=== PATIENT | female | born 1955 | race Caucasian/White ===

== ENCOUNTER 2019-05-16 05:59 | Inpatient (IN) ==
--- NOTE | 2019-04-24 13:30 | PAT Medication Instructions ---
Medication Instructions Date of Service April 24, 2019 Home Medications amlodipine 5 mg PO QAM atenolol 25 mg PO BID atorvastatin 10 mg PO Q2D cholecalciferol (vitamin D3) [Vitamin D3] 2,000 unit PO BID fluoxetine 40 mg PO QAM irbesartan 300 mg PO QAM metformin 1,000 mg PO BID omeprazole 20 mg PO QAM Continue as directed atorvastatin 10 mg PO Q2D DO NOT take the morning of surgery cholecalciferol (vitamin D3) [Vitamin D3] 2,000 unit PO BID irbesartan 300 mg PO QAM metformin 1,000 mg PO BID Take morning of surgery With a small sip of water, OTHERWISE NOTHING TO EAT OR DRINK AFTER MIDNIGHT: amlodipine 5 mg PO QAM atenolol 25 mg PO BID fluoxetine 40 mg PO QAM omeprazole 20 mg PO QAM Take evening before surgery atenolol 25 mg PO BID cholecalciferol (vitamin D3) [Vitamin D3] 2,000 unit PO BID metformin 1,000 mg PO BID Other Notes If you have any questions please call us at [phone] or [phone] or [phone] or [phone]
--- NOTE | 2019-04-25 08:56 | Anesthesiology Consultation ---
Date of Service April 25, 2019 Assessment & Plan (1) Encounter for pre-operative examination: Chart Review Chart Review: Acceptable Risk for Surgery (pending preop testing (labs, EKG, CXR)) and Patient seen in Pre Admission Testing Teaching & Discussion Pre-Anesthesia Teaching/Discussion Notes: Instructed NPO after midnight before surgery,except medications with 15 cc of water. Medication instructions provided according to the PAT guidelines. History Surgery Operation Date: 05/16/19 07:45 Proposed Procedures p L2-S1 Decompression and Fusion, Spinal Cord Monitoring - Quincy Kruger DO Height/Weight Height: 5 ft 5 in Weight: 90 kg Allergies Allergy/AdvReac Type Severity Reaction Status Date / Time No Known Allergies Allergy Verified 04/18/19 12:10 Medications Home Medications Medication Instructions Recorded Confirmed Last Taken amlodipine 5 mg PO QAM 04/18/19 04/18/19 04/18/19 atenolol 25 mg PO BID 04/18/19 04/18/19 04/18/19 atorvastatin 10 mg PO Q2D 04/18/19 04/18/19 Unknown cholecalciferol (vitamin D3) 2,000 unit PO BID 04/18/19 04/18/19 Unknown [Vitamin D3] fluoxetine 40 mg PO QAM 04/18/19 04/18/19 04/18/19 irbesartan 300 mg PO QAM 04/18/19 04/18/19 04/18/19 metformin 1,000 mg PO BID 04/18/19 04/18/19 04/18/19 omeprazole 20 mg PO QAM 04/18/19 04/18/19 04/18/19 Past Medical History Medical History Acid reflux controlled Anxiety and depression Diabetes Hiatal hernia Hypertension Obesity Spinal stenosis Exercise / Class Metabolic Activity II 4-5 Yardwork/Stairs/Walk up hill Past Family History Family History Son Family history of diabetes mellitus (DM) Past Surgical History Surgical History History of appendectomy History of back surgery "NO HARDWARE" History of colonoscopy History of hysterectomy History of tubal ligation Past Anesthesia History No Family Hx of Anesthesia Complications and Other *Patient reports she had hypotension during colonoscopy resolved with medical therapy. No issues with other surgeries/procedures.* History of PONV No Hx of PONV and No Hx of Motion Sickness Social History Smoking Status: Current every day smoker tobacco type: cigarettes Smoking cigarettes per day: 1 PPD x 30 years Do You Dip or Chew Tobacco: No Hx Alcohol Use: Yes Alcohol type: beer alcohol intake frequency: a few times a month Hx Substance Use: No substance use type: does not use Review of Systems Reflux controlled. Patient denies chest pain, shortness of breath, dyspnea on exertion, cough, wheezing, palpitations. Physical Exam Vital Signs VITALS BP 130/77 P 65 TEMP 98.1 SP02 98%RA RESP 16 PHYSICAL Full neck and c-spine range of motion. Full TMJ range of motion. TMD 3.5 finger breaths Mallampati Score 3 Dentition: missing sides/molars, 4 crowns including upper front Lungs: clear throughout to auscultation Cardiac: regular rate and rhythm, no murmurs noted Spine: normal Carotid arteries: negative bruit Extremities: no edema
--- NOTE | 2019-04-25 09:30 | XRay Report ---
XR chest Pre-admission PA/Lat CLINICAL HISTORY: Preoperative evaluation. COMPARISON STUDY: No previous studies for comparison. FINDINGS: Lung volumes are normal. Lungs are clear. There is no pneumothorax or pleural effusion. Car diac size is normal. Mediastinal contours are normal. There is no evidence for pulmonary edema. IMPRESSION: No acute cardiopulmonary findings. Electronically signed by: Kamron Kerns M.D. 04/25/2019 9:28 AM
[2019-04-25 10:32] LABS: Basophils # (auto) 0.08 K/uL (0-0.2); Basophils % (auto) 0.8 %; Eosinophils # (auto) 0.18 K/uL (0-0.5); Eosinophils % (auto) 1.7 %; Hemoglobin 15.5 g/dL (12.0-16.0); Immature Granulocytes # (auto) 0.03 K/uL (0.00-0.02); Immature Granulocytes % (auto) 0.3 %; Lymphocytes # (auto) 1.65 K/uL (1.2-3.4); Lymphocytes % (auto) 15.9 %; Mean Corpuscular Hemoglobin 31.8 pg (25-34); Mean Corpuscular Volume 88.1 fL (80-100); Mean Platelet Volume 10.6 fL (7.4-10.4); Monocytes % (auto) 7.7 %; Neutrophils # (auto) 7.67 K/uL (1.4-6.5); Neutrophils % (auto) 73.6 %; Platelet Count 329 K/uL (130-400); RDW Coefficient of Variation 12.9 % (11.5-14.5); RDW Standard Deviation 41.4 fL (36.4-46.3); Red Blood Count 4.88 M/uL (4.2-5.4); White Blood Count 10.41 K/uL (4.8-10.8)
[2019-04-25 10:36] LABS: Appearance Urine Clear (Clear); Bilirubin Urine Negative (Negative); Blood Urine Negative (Negative); Color Urine Yellow; Glucose Urine UA Negative (Negative); Ketones Urine Negative (Negative); Leukocyte Esterase Urine Negative (Negative); Nitrite Urine Negative (Negative); Protein Urine Negative (Negative); Specific Gravity Urine 1.011 (1.000-1.030); Urobilinogen Urine Negative (Negative); pH Urine 6.5 (4.5-7.5)
[2019-04-25 10:41] LABS: Partial Thromboplastin Ratio 0.9; Partial Thromboplastin Time 24.5 Seconds (21.0-31.0); Prothrombin Time 10.2 Seconds (9.0-12.0)
[2019-04-25 10:42] LABS: BUN Creatinine Ratio 15.2 (10-20); Calcium 9.3 mg/dl (8.5-10.1); Creatinine Clr Calc Pharmacy 69.2 ml/min; Est GFR (African American) 77.3; Est GFR (Non-African American) 66.7; Potassium 4.4 mmol/L (3.5-5.1)
[2019-05-16] MEDS ORDERED: CeleBREX 200 MG CAP PO SCH (06:00)
[2019-05-16] MEDS ORDERED: LR 15ML/HR IV SCH (06:00)
[2019-05-16] MEDS ORDERED: GABAPENTIN 300 MG CAP PO SCH (06:00)
[2019-05-16] MEDS ORDERED: CEFAZOLIN 2000MG 2,000 MG/15 ML SYR IV SCH (06:00)
[2019-05-16] MEDS ORDERED: ACETAMINOPHEN 500 MG TAB PO SCH (06:00)
[2019-05-16] MEDS ORDERED: LIDOCAINE HCL 2% 2 ML VIAL/AMP(20MG/ML) INFIL ONE (06:38)
[2019-05-16] MEDS ORDERED: ONDANSETRON INJ 2 MG/ML 2 ML VIAL ONE (06:38)
[2019-05-16] MEDS ORDERED: DEXAMETHASONE SOD INJ 4 MG/ML VIAL ONE ×2 (06:38→12:23)
[2019-05-16] MEDS ORDERED: PROPOFOL IV EMULSION 10 MG/ML 20 ML VIAL IV ONE (06:38)
[2019-05-16] MEDS ORDERED: MIDAZOLAM HCL 1 MG/ML 2ML VIAL ONE (06:38)
[2019-05-16] MEDS ORDERED: ROCURONIUM BROMIDE 10 MG/ML 5 ML VIAL ONE ×3 (06:38→09:28)
[2019-05-16] MEDS ORDERED: fentaNYL citrate 100 MCG/2 ML VIAL ONE ×2 (06:38)
[2019-05-16] MEDS ORDERED: BACITRACIN INJ 50,000 UNIT VIAL ONE (07:04)
[2019-05-16] MEDS ORDERED: BUPIVACAINE/EPINEPHRINE 0.5% MPF 1:200,000 30 ML VIAL ONE (07:04)
[2019-05-16] MEDS ORDERED: ACETAMINOPHEN 1000 MG/100 ML IV IV ONE (07:24)
--- NOTE | 2019-05-16 07:26 | History & Physical Bridge Note ---
Date of Service May 16, 2019 History & Physical Bridge Note I have examined the patient, reviewed the History & Physical and in the interval since the performance of the History & Physical I have noted the following changes of clinical significance: no changes noted
--- NOTE | 2019-05-16 07:28 | History & Physical Report ---
Date of Service May 16, 2019 Assessment & Plan (1) Spinal stenosis, lumbar region with neurogenic claudication: Decompression and fusion L4-5 possible L3-4 L2-3. Present on Admission?: Yes History of Present Illness Chief Complaint: Back and leg pain Primary Care Provider: NO PCP Female well-known to me that presents with chronic persistent back and leg pain. After failing extensive course of nonoperative care she is here for surgical intervention. Allergies Allergy/AdvReac Type Severity Reaction Status Date / Time No Known Allergies Allergy Verified 05/16/19 06:16 Home Medications Home Medications Medication Instructions Recorded Confirmed Type amlodipine 5 mg PO QAM 04/18/19 05/16/19 History atenolol 25 mg PO BID 04/18/19 05/16/19 History atorvastatin 10 mg PO Q2D 04/18/19 05/16/19 History cholecalciferol (vitamin D3) 2,000 unit PO BID 04/18/19 05/16/19 History [Vitamin D3] fluoxetine 40 mg PO QAM 04/18/19 05/16/19 History irbesartan 300 mg PO QAM 04/18/19 05/16/19 History metformin 1,000 mg PO BID 04/18/19 05/16/19 History omeprazole 20 mg PO QAM 04/18/19 05/16/19 History Past Med/Surg History Family History Son Family history of diabetes mellitus (DM) Social History Preferred Language: Latvian Communication Ability: Effective Home Restoration Service Supervisor Required: No Beliefs That Will Affect Care: None Current Living Situation: Alone Other Information That Helps Us Care for You: No Feels Safe at Home: Yes Smoking Status: Current every day smoker Tobacco Type: cigarettes ; Cigarettes Per Day: 1 PPD x 30 years ; Do You Dip or Chew Tobacco: No ; Tobacco Cessation Education Requested by Patient: No Hx Alcohol Use: Yes Alcohol type: beer Hx Substance Use: No Physical Exam Physical Exam: Patient is alert and oriented neurologically intact. Results & Data Vital Signs (Past 12 Hours) Vital Signs Temp Pulse Resp BP Pulse Ox 05/16/19 06:19 37 C 78 20 169/93 H 98
[2019-05-16] MEDS ORDERED: MoRPHine SULFATE 10 MG/ML CARP/VIAL IV PRN (07:36)
[2019-05-16] MEDS ORDERED: ePHEDrine sulfate 50 MG/ML AMP IV PRN (07:36)
[2019-05-16] MEDS ORDERED: ONDANSETRON INJ 2 MG/ML 2 ML VIAL IV PRN ×2 (07:36→10:02)
[2019-05-16] MEDS ORDERED: ATROPINE SULFATE 0.1 MG/ML 10ML SYR IV PRN (07:36)
[2019-05-16] MEDS ORDERED: KETAMINE HCL INJ 50 MG/ML 10 ML VIAL ONE (07:55)
[2019-05-16] MEDS ORDERED: ePHEDrine sulfate 50 MG/ML SYR ONE (08:17)
[2019-05-16] MEDS ORDERED: HYDROmorphone INJ 2 MG/ML SYR/VIAL ONE (08:24)
[2019-05-16] MEDS ORDERED: FLOSEAL HEMOSTATIC MATRIX 10ML TOP ONE (08:38)
[2019-05-16] MEDS ORDERED: GLYCOPYRROLATE 0.2 MG/ML VIAL ONE (09:28)
[2019-05-16] MEDS ORDERED: NEOSTIGMINE METHYLSULFATE 1 MG/ML 10ML VIAL ONE (09:28)
[2019-05-16] MEDS ORDERED: ONDANSETRON 4 MG TAB PO PRN (10:02)
[2019-05-16] MEDS ORDERED: ALUMINUM/MAGNESIUM SUSP 30 ML UDC PO PRN (10:02)
[2019-05-16] MEDS ORDERED: LORazepam 0.5 MG TAB PO PRN (10:02)
[2019-05-16] MEDS ORDERED: PROMETHAZINE HCL 12.5 MG in SODIUM CHLORIDE 0.9% 50 ML IV PRN (10:02)
[2019-05-16] MEDS ORDERED: HYDROmorphone INJ 0.5 MG/0.5 ML SYR IV PRN (10:02)
[2019-05-16] MEDS ORDERED: MAGNESIUM HYDROXIDE SUSP 30 ML UDC PO PRN (10:02)
[2019-05-16] MEDS ORDERED: METOCLOPRAMIDE HCL INJ 5 MG/ML 2 ML VIAL IV PRN (10:02)
[2019-05-16] MEDS ORDERED: NALOXONE HCL 0.4 MG/1 ML VIAL/CARP IV PRN (10:02)
[2019-05-16] MEDS ORDERED: SOD PHOSPHATE/SOD BIPHOSPHATE ENEMA 132 ML BTL PR PRN (10:02)
[2019-05-16] MEDS ORDERED: DO NOT ADMINISTER FLU VACCINE PRN (10:02)
[2019-05-16] MEDS ORDERED: ACETAMINOPHEN 500 MG TAB PO PRN (10:02)
[2019-05-16] MEDS ORDERED: ACETAMINOPHEN 1,000 MG/100 ML VIAL IV PRN (10:02)
[2019-05-16] MEDS ORDERED: TRAMADOL HCL 50 MG TABLET PO PRN (10:02)
[2019-05-16] MEDS ORDERED: BISACODYL 10 MG SUPP PR PRN (10:02)
[2019-05-16] MEDS ORDERED: FAMOTIDINE 20 MG TAB PO PRN (10:02)
[2019-05-16] MEDS ORDERED: DO NOT ADMINISTER PNEUMOCOCCAL VACCINE PRN (10:02)
[2019-05-16] MEDS ORDERED: LORazepam 0.5 MG/1 ML VIAL IV PRN (10:02)
--- NOTE | 2019-05-16 10:02 | Operative Report ---
Post Operative Report Pre & Post Diagnosis Operation Date: 05/16/19 07:45 Pre-Op Diagnosis: LUMBAR SPINAL STENOSIS, NEUROGENIC CLAUDICATION Post-Op Diagnosis: LUMBAR SPINAL STENOSIS, NEUROGENIC CLAUDICATION Procedure Operation Date: 05/16/19 07:45 Actual Procedures #1 revision decompression bilateral medial facetectomies foraminotomies L2-3 L3- 4 L4-5. #2 posterior spinal fusion L2-3 L3-4 L4-5 per #3 placement posterior segmental instrumentation L2-L5. #4 interbody fusion L4-5 per #5 placed a peek cage 11 x 26 mm at L4-5 per #6 placement of local autograft in the posterior lateral gutters per #7 placement infuse collagen sponge, mass graft in the posterior lateral gutters and ostial amp and interbody space. Surgeon Quincy Kruger, DO Distribution Accounting Clerk Alton Olsen Estimated Blood Loss 200 Findings See Below Patient is 5 foot 5 inches tall weighing over 89 kg with BMI in excess of 32. The patient's body habitus did create significant technical difficulty adding at least 25% increase in operative time requiring her deepest retractors and longest instruments to perform the procedure. Specimens None Indications This is a 63-year-old female presents with above-mentioned diagnosis after failing extensive course of nonoperative care like to undergo the above- mentioned procedure. Description of Procedure Patient was met with identified and informed consent obtained. Patient was then taken to the operative suite underwent intubation placed in the prone position on the José table on top. All bony prominences well-padded eyes inspected to ensure no external pressure placed upon the peer at this point the dissection with the assistance of Bovie cautery was performed down to and exposing the remaining lamina processes of L2-L3-L4 5 bilaterally. From a caudal to cephalad fashion a revision complete laminectomy of L4 L3 and L2 was performed including bilateral medial facetectomies to address severe stenosis. I did elect to extend the fusion decompression up to L2-3 L3-4 noting marked facet hypertrophy and significant stenosis. Pedicle screw was then placed in L2 L3-L4-L5 bilaterally with assistance of fluoroscopy the process renu placed. By way of a transforaminal portion right complete discectomy was performed endplates curetted to subcortical being bone and a 11 x 26 mm peek cage filled with ostium bone graft tapped in position. The rods were then locked in final position bilaterally. Transverse processes of L2-L3-L4 fiber to subcortical bleeding bone. Infuse collagen sponge mass graft and local autograft of 10 round MARLYN drain inserted. Incision was then closed with 1 Vicryl in the fascia 2-0 Vicryl subcutaneous and 4 Monocryl for final skin closure. Steri-Strip sterile dressings placed. Patient will continue to PACU stable condition. Please note Alton Olsen present throughout the entire procedure involved in patient positioning complex portions of the surgery and final skin closure. Lastly spinal cord monitoring was utilized throughout the procedure no changes noted. I attest to the content of the Intraoperative Record and any orders documented therein. Any exceptions are noted below.
--- NOTE | 2019-05-16 10:18 | Fluoroscopy Report ---
FL lumbar spine 2-3V CLINICAL HISTORY: L3-L4 DECOMPRESSION AND FUSION POSSIBLE L2-L3 COMPARISON STUDY: None FLUOROSCOPY TIME: 29 seconds NUMBER OF FLUOROSCOPIC IMAGES: 3 FINDINGS: Findings consistent with an L2-L5 laminectomy and fusion. Disc spacer is present at the L4- L5 level. Alignment appears anatomic. IMPRESSION: Anatomic alignment post L2-L5 laminectomy and fusion The above report was generated using voice recognition software. It may contain grammatical, syntax or spelling errors. Electronically signed by: Addison Maldonado M.D. 05/16/2019 10:17 AM
[2019-05-16] MEDS: fentaNYL citrate 100 MCG/2 ML VIAL IV PRN ×2 (10:35→10:40)
--- NOTE | 2019-05-16 10:54 | Anesthesiology Progress Note ---
Date of Service May 16, 2019 Anesthesia Post Procedure Vital Signs Vital Signs: Temp Pulse Resp BP Pulse Ox 05/16/19 10:50 81 16 135/62 98 05/16/19 10:40 78 16 120/63 100 05/16/19 10:30 70 16 113/68 100 05/16/19 10:23 36.4 C L 86 16 150/74 H 98 05/16/19 06:19 37 C 78 20 169/93 H 98 Pain Intensity Back: Pain Intensity: 6 Transfer of Care Handoff Completed per policy Notes Mental Status: alert / awake / arousable and participated in evaluation Patient Amnestic to Procedure: Yes Nausea / Vomiting: adequately controlled Pain: adequately controlled Airway Patency, RR, SpO2: stable & adequate BP & HR: stable & adequate Hydration State: stable & adequate Anesthetic Complications: no major complications apparent and Pt Satisfied with anesthetic care
[2019-05-16] MEDS: LACTATED RINGER'S 1,000 ML IV SCH ×2 (12:33→18:21)
[2019-05-16] MEDS: ATORVASTATIN 10 MG TAB PO SCH (13:19)
[2019-05-16] MEDS ORDERED: CARBOHYDRATES FOR HYPOGLYCEMIA PO PRN (13:51)
[2019-05-16] MEDS ORDERED: GLUCOSE 10 TABS/TUBE PO PRN (13:51)
[2019-05-16] MEDS ORDERED: GLUCAGON FOR INJ 1 MG VIAL SQ PRN (13:51)
[2019-05-16] MEDS ORDERED: DEXTROSE 50% 50 ML SYRINGE IV PRN (13:51)
[2019-05-16] MEDS ORDERED: GLUCOSE 40% GEL 15 GM TUBE PO PRN (13:51)
--- NOTE | 2019-05-16 13:57 | Hospitalist Consultation ---
Date of Consultation May 16, 2019 Assessment & Plan (1) Spinal stenosis, lumbar region with neurogenic claudication: - POD# 0 L2-L3, L3-L4, L4-L5 decompression and fusion by Dr. Kruger - activity and wound care orders as per ortho - pain control with bowel regimen - PT/OT - monitor H/H for acute blood loss anemia and transfuse blood products PRN - EBL 200 cc (2) Diabetes: -Per patient report, Hgb A1c 7.0 in October; will check with morning labs -Typically managed on metformin at home -Lantus and NovoLog per protocol while hospitalized (3) Hypertension: -BP controlled, continue amlodipine, irbesartan, and atenolol (4) HLD (hyperlipidemia): -Continue statin (5) Acid reflux: -Continue PPI (6) Anxiety and depression: -Continue fluoxetine (7) DVT prophylaxis: -Teds/SCDs as per spine orthopedics Thank you for this consultation. We will follow the patient with you during their hospital stay. You can reach a member of the [facility] Hospitalist Team 19/03 via pager @ [phone]. Patient will be followed by Dr. Pierce beginning 05/17. Supervising Physician Co-Signing Physician Notes HISTORY: Record reviewed. Patient interviewed and examined in her room around 16:00. Care coordinated with FAYE Burkett. Please refer to her documentation for patient's history. Briefly, 63 YO F with DM, hypertension, and other problems. Lumbar decompression / fusion performed today. Doing well postoperatively. No chest pain, cough, SOB, nausea, vomiting. Pain well-controlled. EXAM: General- no distress Lungs- clear to auscultation; no respiratory distress Cardiovascular- RRR; no murmur; no gallop; no JVD; no pretibial edema Abdomen- + bowel sounds, soft, nontender - Bolanos cath Extremities- no cyanosis; no calf tenderness; TEDS and SCD's applied Neuro- alert, oriented Skin- warm & dry DATA: Fingerstick blood glucose 196 @ 11:57 Other lab studies as noted. Preop chest x-ray 04/25/19 was unremarkable. EKG performed 04/25/19 reviewed and demonstrated NSR at 70 / minute, no acute changes. ASSESSMENT AND PLAN: HYPERTENSION Continue atenolol, amlodipine, irbesartan with hold parameters. DM TYPE 2 Usually fairly well-controlled with metformin. Hold metformin during hospital stay. NovoLog / Lantus per protocol. Please refer to KATHLEEN Olivarez's documentation for discussion of other issues. Thank you for this consultation. We will follow the patient with you during their hospital stay. My cell # is [phone]. You can reach a member of the [facility] Medicine Team 19/03 via pager @ [phone]. History of Present Illness Reason for Consultation: Postop medical management Requesting Physician: Dr. Kruger Attending Physician: Dr. Harrell History of Present Illness 63-year-old female who is status post decompression fusion L2-L3, L3-L4, L4-L5 today by Dr. Kruger. Postoperatively the patient is doing well. She reports her pain is well controlled. No numbness or tingling to lower extremities. She denies chest pain shortness of breath. No lightheadedness or dizziness. She denies abdominal pain or nausea. Bolanos catheter is in place draining clear yellow urine. Allergies Allergy/AdvReac Type Severity Reaction Status Date / Time No Known Allergies Allergy Verified 05/16/19 06:16 Home Medications Home Medications Medication Instructions Recorded Confirmed Type amlodipine 5 mg PO QAM 04/18/19 05/16/19 History atenolol 25 mg PO BID 04/18/19 05/16/19 History atorvastatin 10 mg PO Q2D 04/18/19 05/16/19 History cholecalciferol (vitamin D3) 2,000 unit PO BID 04/18/19 05/16/19 History [Vitamin D3] fluoxetine 40 mg PO QAM 04/18/19 05/16/19 History irbesartan 300 mg PO QAM 04/18/19 05/16/19 History metformin 1,000 mg PO BID 04/18/19 05/16/19 History omeprazole 20 mg PO QAM 04/18/19 05/16/19 History Patient History Medical History HLD (hyperlipidemia) (Chronic) Hypertension (Chronic) Diabetes (Chronic) Anxiety and depression (Chronic) Spinal stenosis (Chronic) Acid reflux (Chronic) controlled Hiatal hernia (Chronic) Obesity (Chronic) Surgical History History of appendectomy (Chronic) History of tubal ligation (Chronic) History of hysterectomy (Chronic) History of back surgery (Chronic) "NO HARDWARE" History of colonoscopy (Chronic) Family History Son Diabetes Mother COPD (chronic obstructive pulmonary disease) Diabetes Sister Diabetes Social History Preferred Language: Belarusian Communication Ability: Effective Embedded Linux Engineer Required: No Beliefs That Will Affect Care: None Current Living Situation: Alone Other Information That Helps Us Care for You: No Feels Safe at Home: Yes Smoking Status: Current every day smoker Tobacco Type: cigarettes ; Cigarettes Per Day: 1 PPD x 30 years ; Do You Dip or Chew Tobacco: No ; Tobacco Cessation Education Requested by Patient: No Hx Alcohol Use: Yes Alcohol type: beer Alcohol Intake Frequency: Weekly Hx Substance Use: No Review of Systems Review of Systems: ROS per HPI, all other systems reviewed and negative Physical Exam Constitutional: WD/WN, vitals as above Eyes: PERRL, conjunctivae normal, anicteric sclerae ENMT: external ear and nose normal, oropharynx normal Respiratory: normal respiratory effort; no respiratory distress Auscultation: + diminished lung sounds Cardiovascular: Rate/Rhythm: regular rate and regular rhythm Vessels: normal peripheral pulses Extremities: no edema Gastrointestinal (Abdomen): normal bowel sounds, soft, nontender, no hepatosplenomegaly Musculoskeletal: no cyanosis or clubbing, extremities motor strength 5/5 S/P back surgery, pedal pushes and pulls strong bilaterally Skin: no rashes, warm and dry Neurologic: PERRL, EOMI, accommodation nl, no face palsy, no dysarthria Psychiatric: A+Ox3, euthymic affect Results & Data Vital Signs (Past 12 Hours) Vital Signs Temp Pulse Pulse Resp BP Pulse Ox 05/16/19 13:38 36.4 C L 73 20 103/64 99 05/16/19 12:40 77 18 105/63 98 05/16/19 12:34 36.4 C L 75 16 103/61 98 05/16/19 12:13 76 16 109/64 97 05/16/19 11:20 74 16 116/59 L 96 05/16/19 11:10 70 16 107/58 L 97 05/16/19 11:00 36.6 C 76 16 114/56 L 99 05/16/19 10:50 81 16 135/62 98 05/16/19 10:40 78 16 120/63 100 05/16/19 10:30 70 16 113/68 100 05/16/19 10:23 36.4 C L 86 16 150/74 H 98 05/16/19 06:19 37 C 78 20 169/93 H 98
[2019-05-16] MEDS: CEFAZOLIN 2000MG 2,000 MG/15 ML SYR IV SCH ×2 (17:23→23:30)
[2019-05-16] MEDS: INSULIN ASPART 100 UNITS/ML 3 ML PEN SC SCH ×2 (18:11→21:01)
[2019-05-16] MEDS: OXYCODONE HCL IR 5 MG TAB (IMMEDIATE RELEASE) PO PRN (20:53)
[2019-05-16] MEDS: ATENOLOL 25 MG TABLET PO SCH (20:54)
[2019-05-16] MEDS: CHOLECALCIFEROL 1,000 UNITS TAB PO SCH (20:55)
[2019-05-16] MEDS: INSULIN GLARGINE SOLOSTAR 100 UNITS/ML 3 ML PEN SC SCH (20:58)
[2019-05-16] MEDS: DOCUSATE SODIUM/SENNA 50/8.6MG TAB PO SCH (21:04)
[2019-05-17] MEDS: LACTATED RINGER'S 1,000 ML IV SCH (00:52)
[2019-05-17] MEDS: OXYCODONE HCL IR 5 MG TAB (IMMEDIATE RELEASE) PO PRN ×5 (00:52→20:19)
[2019-05-17] MEDS: POLYETHYLENE (MIRALAX) 17 GM PACK PO SCH ×4 (05:23→23:34)
[2019-05-17 05:57] LABS: Basophils # (auto) 0.06 K/uL (0-0.2); Basophils % (auto) 0.5 %; Eosinophils # (auto) 0.34 K/uL (0-0.5); Eosinophils % (auto) 2.6 %; Hematocrit (blood only) 34.1 % (37-47); Hemoglobin 11.9 g/dL (12.0-16.0); Immature Granulocytes # (auto) 0.04 K/uL (0.00-0.02); Immature Granulocytes % (auto) 0.3 %; Lymphocytes # (auto) 1.66 K/uL (1.2-3.4); Lymphocytes % (auto) 12.5 %; Mean Corpuscular Hemoglobin 31.3 pg (25-34); Mean Corpuscular Hgb Conc 34.9 g/dL (32-36); Mean Corpuscular Volume 89.7 fL (80-100); Mean Platelet Volume 9.9 fL (7.4-10.4); Monocytes # (auto) 1.42 K/uL (0.11-0.59); Monocytes % (auto) 10.7 %; Neutrophils # (auto) 9.72 K/uL (1.4-6.5); Neutrophils % (auto) 73.4 %; Platelet Count 251 K/uL (130-400); RDW Coefficient of Variation 12.9 % (11.5-14.5); RDW Standard Deviation 42.2 fL (36.4-46.3); White Blood Count 13.24 K/uL (4.8-10.8)
[2019-05-17 06:32] LABS: BUN Creatinine Ratio 8.1 (10-20); Calcium 8.3 mg/dl (8.5-10.1); Creatinine Clr Calc Pharmacy 83.7 ml/min; Est GFR (African American) 97.6; Est GFR (Non-African American) 84.2
--- NOTE | 2019-05-17 07:47 | Orthopedic Progress Note ---
Date of Service May 17, 2019 Assessment & Plan (1) Spinal stenosis, lumbar region with neurogenic claudication: Patient is doing well postoperative day #1. Team with GI DVT prophylaxis as well as pain control. She will be up and ambulate with physical therapy today. Her hopes that she will be safe for home discharge on Sunday. Subjective Patient was seen bedside in room 306 postop day #1. She is status post L2-L5 decompression and fusion. She is doing better at this point. She has some soreness in her back but the leg pain seems to be better. She did have some pain that woke her up at night but primarily in the back itself. She is u tilizing her pain medication. She denies any other numbness, tingling, or paresthesias. Physical Exam Physical Exam: On exam the patient was seen standing up using her walker. Her MARLYN drain Bolanos are in place. Her abdomen soft nontender calves are supple nontender strength and sensation are both intact. Results & Data Vital Signs (Past 12 Hours) Vital Signs Temp Pulse Resp BP Pulse Ox 05/17/19 07:05 37.2 C 72 18 126/74 91 05/17/19 03:44 36.7 C 72 16 109/65 96 05/16/19 23:35 37.3 C 68 16 104/68 95 05/16/19 20:27 36.6 C 73 16 119/71 91
[2019-05-17 07:50] LABS: Estimated Average Glucose 146 mg/dl; Hemoglobin A1C 6.7 % (4.5-5.6)
[2019-05-17] MEDS: PANTOprazole 40 MG TAB PO SCH (08:30)
[2019-05-17] MEDS: AMLODIPINE BESYLATE 5 MG TAB PO SCH (08:31)
[2019-05-17] MEDS: IRBESARTAN 150 MG TAB PO SCH (08:31)
[2019-05-17] MEDS: CHOLECALCIFEROL 1,000 UNITS TAB PO SCH ×2 (08:31→20:19)
[2019-05-17] MEDS: FLUOXETINE HCL 20 MG CAP PO SCH (08:32)
[2019-05-17] MEDS: ATENOLOL 25 MG TABLET PO SCH ×2 (08:32→20:19)
[2019-05-17] MEDS: INSULIN ASPART 100 UNITS/ML 3 ML PEN SC SCH ×4 (08:34→21:11)
[2019-05-17] MEDS: INSULIN GLARGINE SOLOSTAR 100 UNITS/ML 3 ML PEN SC SCH ×2 (08:35→21:10)
--- NOTE | 2019-05-17 09:18 | Hospitalist Progress Note ---
Date of Service May 17, 2019 Assessment & Plan (1) Spinal stenosis, lumbar region with neurogenic claudication: -This is a patient with preop diagnosis of LUMBAR SPINAL STENOSIS, NEUROGENIC CLAUDICATION who had on 05/16/19 LUMBAR SPINE DECOMPRESSION AND FUSION by Dr. Kruger (Actual Procedures #1 revision decompression bilateral medial facetectomies foraminotomies L2-3 L3- 4 L4-5. #2 posterior spinal fusion L2-3 L3-4 L4-5 per #3 placement posterior segmental instrumentation L2-L5. #4 interbody fusion L4-5 per #5 placed a peek cage 11 x 26 mm at L4-5 per #6 placement of local autograft in the posterior lateral gutters per #7 placement infuse collagen sponge, mass graft in the po sterior lateral gutters and ostial amp and interbody space) - activity and wound care orders as per ortho - pain control with bowel regimen -MCKINLEY TO BE REMOVED ON 05/17/19 - PT/OT Acute blood loss anemia -04/25/19 with normal Hgb of 15.5 -Estimated Blood Loss from surgery is 200 cc on 05/16/19 -Hgb on 05/17/19 is 11.9 -monitor serosanguinous output from MARLYN drain -no need to transfuse at this time (2) Diabetes: -Per patient report, Hgb A1c 7.0 in October -HbA1c is 6.7 on this hospital stay -Typically managed on metformin at home -hold metformin for now -Lantus and NovoLog per protocol while hospitalized (3) Hypertension: -blood pressure stable -continue amlodipine, irbesartan, and atenolol (4) HLD (hyperlipidemia): -Continue home dosing of atorvastatin 10 mg every 2 days (5) Acid reflux: -Continue PPI (6) Anxiety and depression: -Continue fluoxetine (7) DVT prophylaxis: -Teds/SCDs Subjective Patient seen and examined this AM. Has not been seen by physical therapy as of yet. mckinley is still in place. patient able to sit up on her own power. back pain is tolerable. no shortness of breath. breathing on room air. no chest pain. no abdominal pain. no dizziness. no lightheadedness. no vomiting. Physical Exam Constitutional: WD/WN, vitals as above Eyes: PERRL, conjunctivae normal, anicteric sclerae EOM intact bilaterally ENMT: external ear and nose normal, oropharynx normal Neck: normal visual inspection Respiratory: normal respiratory effort, lungs clear to auscultation Cardiovascular: Rate/Rhythm: regular rate and regular rhythm Gastrointestinal (Abdomen): normal bowel sounds, soft, nontender, no hepatosplenomegaly Musculoskeletal: Head/Neck/Chest: normocephalic and head atraumatic able to sit up on her own power, MARLYN drain to the back, lower back dressing Neurologic: PERRL, EOMI, accommodation nl, no face palsy, no dysarthria Genitourinary: mckinley Results & Data Vital Signs (Past 12 Hours) Vital Signs Temp Pulse Pulse Resp BP Pulse Ox 05/17/19 08:29 88 118/67 05/17/19 07:05 37.2 C 72 18 126/74 91 05/17/19 03:44 36.7 C 72 16 109/65 96 05/16/19 23:35 37.3 C 68 16 104/68 95
[2019-05-17] MEDS: DOCUSATE SODIUM/SENNA 50/8.6MG TAB PO SCH (17:31)
[2019-05-18] MEDS: OXYCODONE HCL IR 5 MG TAB (IMMEDIATE RELEASE) PO PRN ×5 (01:28→23:37)
[2019-05-18] MEDS: POLYETHYLENE (MIRALAX) 17 GM PACK PO SCH ×2 (05:27→13:11)
[2019-05-18 07:49] LABS: Basophils # (auto) 0.02 K/uL (0-0.2); Basophils % (auto) 0.1 %; Eosinophils # (auto) 0.04 K/uL (0-0.5); Eosinophils % (auto) 0.2 %; Hematocrit (blood only) 30.9 % (37-47); Hemoglobin 10.8 g/dL (12.0-16.0); Immature Granulocytes # (auto) 0.03 K/uL (0.00-0.02); Immature Granulocytes % (auto) 0.2 %; Lymphocytes # (auto) 1.21 K/uL (1.2-3.4); Lymphocytes % (auto) 7.3 %; Mean Corpuscular Hemoglobin 31.4 pg (25-34); Mean Corpuscular Volume 89.8 fL (80-100); Mean Platelet Volume 9.2 fL (7.4-10.4); Monocytes # (auto) 1.49 K/uL (0.11-0.59); Neutrophils # (auto) 13.74 K/uL (1.4-6.5); Neutrophils % (auto) 83.2 %; Platelet Count 218 K/uL (130-400); RDW Coefficient of Variation 12.9 % (11.5-14.5); RDW Standard Deviation 41.7 fL (36.4-46.3); Red Blood Count 3.44 M/uL (4.2-5.4); White Blood Count 16.53 K/uL (4.8-10.8)
[2019-05-18 08:31] LABS: Albumin Level 2.7 gm/dl (3.4-5.0); BUN Creatinine Ratio 10.9 (10-20); Creatinine Clr Calc Pharmacy 89.7 ml/min; Est GFR (African American) 106.1; Est GFR (Non-African American) 91.6; Potassium 3.7 mmol/L (3.5-5.1)
[2019-05-18] MEDS: FLUOXETINE HCL 20 MG CAP PO SCH (08:31)
[2019-05-18] MEDS: AMLODIPINE BESYLATE 5 MG TAB PO SCH (08:31)
[2019-05-18] MEDS: ATENOLOL 25 MG TABLET PO SCH ×2 (08:31→21:27)
[2019-05-18] MEDS: IRBESARTAN 150 MG TAB PO SCH (08:31)
[2019-05-18] MEDS: PANTOprazole 40 MG TAB PO SCH (08:32)
[2019-05-18] MEDS: CHOLECALCIFEROL 1,000 UNITS TAB PO SCH ×2 (08:32→21:26)
[2019-05-18] MEDS: INSULIN GLARGINE SOLOSTAR 100 UNITS/ML 3 ML PEN SC SCH ×2 (08:33→21:21)
[2019-05-18 08:34] LABS: Albumin Globulin Ratio 0.8 (0.9-2); Bilirubin,Total 0.6 mg/dl (0.2-1); Globulin 3.4 gm/dl (2.5-4.0); Total Protein 6.1 gm/dl (6.4-8.2)
[2019-05-18] MEDS: INSULIN ASPART 100 UNITS/ML 3 ML PEN SC SCH ×4 (08:35→21:22)
--- NOTE | 2019-05-18 09:04 | Orthopedic Progress Note ---
Date of Service May 18, 2019 Assessment & Plan (1) Spinal stenosis, lumbar region with neurogenic claudication: Patient is doing well postop day #2. Continue with GI DVT prophylaxis continue pain control measures per we will advance her activity. Likely discharge her to home tomorrow. Subjective Patient is postop day #2. Overall she is doing well her pain is well controlled. She is on GI DVT prophylaxis. She is not having symptoms radiating down her legs. She denies any other numbness, tingling, or paresthesias. Physical Exam Physical Exam: On exam she is alert and oriented. Her MARLYN drains in place and is holding suction. Her dressing is clean dry and intact. Her abdomen soft nontender calves are supple nontender. Results & Data Vital Signs (Past 12 Hours) Vital Signs Temp Pulse Pulse Resp BP Pulse Ox 05/18/19 08:30 86 96/61 L 05/18/19 06:32 36.7 C 84 18 114/72 98 05/17/19 22:51 36.7 C 82 16 157/89 H 91
--- NOTE | 2019-05-18 10:41 | Hospitalist Progress Note ---
Date of Service May 18, 2019 Assessment & Plan (1) Spinal stenosis, lumbar region with neurogenic claudication: -This is a patient with preop diagnosis of LUMBAR SPINAL STENOSIS, NEUROGENIC CLAUDICATION who had on 05/16/19 LUMBAR SPINE DECOMPRESSION AND FUSION by Dr. Kruger (Actual Procedures #1 revision decompression bilateral medial facetectomies foraminotomies L2-3 L3- 4 L4-5. #2 posterior spinal fusion L2-3 L3-4 L4-5 per #3 placement posterior segmental instrumentation L2-L5. #4 interbody fusion L4-5 per #5 placed a peek cage 11 x 26 mm at L4-5 per #6 placement of local autograft in the posterior lateral gutters per #7 placement infuse collagen sponge, mass graft in the po sterior lateral gutters and ostial amp and interbody space) - management of MARLYN drain as per orthopedics - pain control with bowel regimen - PT/OT Acute blood loss anemia -04/25/19 with normal Hgb of 15.5 -Estimated Blood Loss from surgery is 200 cc on 05/16/19 -Hgb on 05/17/19 is 11.9 and on 05/18/19 is 10.8 -monitor serosanguinous output from MARLYN drain -no need to transfuse at this time Postoperative Leukocytosis -white blood cell counts increased to 16,500K -monitor with labs (2) Diabetes: -Per patient report, Hgb A1c 7.0 in October -HbA1c is 6.7 on this hospital stay -Typically managed on metformin at home -hold metformin for now -Lantus and NovoLog per protocol while hospitalized (3) Hypertension: -on amlodipine, irbesartan, and atenolol (4) HLD (hyperlipidemia): -Continue home dosing of atorvastatin 10 mg every 2 days (5) Acid reflux: -Continue PPI (6) Anxiety and depression: -Continue fluoxetine (7) DVT prophylaxis: -Teds/SCDs Subjective Patient ambulatory with walker. MARLYN drain to the back. had abdominal pain before but better after able to make bowel movement. no dizziness. no headache. no vomiting. no chest pain. no shortness of breath. no temperature above 38 celsius recently Physical Exam Constitutional: cooperative Eyes: PERRL, conjunctivae normal, anicteric sclerae EOM intact bilaterally ENMT: external ear and nose normal, oropharynx normal Neck: normal visual inspection Respiratory: normal respiratory effort, lungs clear to auscultation Cardiovascular: Rate/Rhythm: regular rate and regular rhythm Gastrointestinal (Abdomen): normal bowel sounds, soft, nontender, no hepatosplenomegaly Musculoskeletal: Head/Neck/Chest: normocephalic and head atraumatic MARLYN drain to the back Neurologic: PERRL, EOMI, accommodation nl, no face palsy, no dysarthria CN's II-XI intact bilaterally ambulatory with walker Psychiatric: A+Ox3, euthymic affect Results & Data Vital Signs (Past 12 Hours) Vital Signs Temp Pulse Pulse Resp BP Pulse Ox 05/18/19 08:30 86 96/61 L 05/18/19 06:32 36.7 C 84 18 114/72 98 05/17/19 22:51 36.7 C 82 16 157/89 H 91
[2019-05-18] MEDS: ATORVASTATIN 10 MG TAB PO SCH (12:46)
[2019-05-18] MEDS: DOCUSATE SODIUM/SENNA 50/8.6MG TAB PO SCH (21:28)
[2019-05-19 05:21] LABS: Basophils # (auto) 0.04 K/uL (0-0.2); Basophils % (auto) 0.3 %; Eosinophils % (auto) 1.4 %; Hemoglobin 10.6 g/dL (12.0-16.0); Immature Granulocytes # (auto) 0.03 K/uL (0.00-0.02); Immature Granulocytes % (auto) 0.2 %; Lymphocytes % (auto) 9.7 %; Mean Corpuscular Hemoglobin 30.5 pg (25-34); Mean Corpuscular Hgb Conc 34.2 g/dL (32-36); Mean Corpuscular Volume 89.3 fL (80-100); Monocytes # (auto) 1.44 K/uL (0.11-0.59); Neutrophils # (auto) 11.28 K/uL (1.4-6.5); Neutrophils % (auto) 78.4 %; Platelet Count 262 K/uL (130-400); RDW Coefficient of Variation 12.9 % (11.5-14.5); RDW Standard Deviation 41.3 fL (36.4-46.3); Red Blood Count 3.47 M/uL (4.2-5.4); White Blood Count 14.39 K/uL (4.8-10.8)
--- NOTE | 2019-05-19 07:56 | Hospitalist Progress Note ---
Date of Service May 19, 2019 Assessment & Plan (1) Spinal stenosis, lumbar region with neurogenic claudication: -This is a patient with preop diagnosis of LUMBAR SPINAL STENOSIS, NEUROGENIC CLAUDICATION who had on 05/16/19 LUMBAR SPINE DECOMPRESSION AND FUSION by Dr. Kruger (Actual Procedures #1 revision decompression bilateral medial facetectomies foraminotomies L2-3 L3- 4 L4-5. #2 posterior spinal fusion L2-3 L3-4 L4-5 per #3 placement posterior segmental instrumentation L2-L5. #4 interbody fusion L4-5 per #5 placed a peek cage 11 x 26 mm at L4-5 per #6 placement of local autograft in the posterior lateral gutters per #7 placement infuse collagen sponge, mass graft in the po sterior lateral gutters and ostial amp and interbody space) - management of MARLYN drain as per orthopedics - pain control with bowel regimen - PT/OT Acute blood loss anemia -04/25/19 with normal Hgb of 15.5 -Estimated Blood Loss from surgery is 200 cc on 05/16/19; serosanguinous output from MARLYN drain -Hgb on 05/17/19 is 11.9 and on 05/18/19 is 10.8 -05/19/19 Hgb of 10.6 which is generally unchanged from 05/18/19 shows recent blood count stability -no need to transfuse at this time Postoperative Leukocytosis -white blood cell counts increased to 16,500 by 05/18/19 -WBC with improvements on 05/19/19 and declined to 14,300 (2) Diabetes: -Per patient report, Hgb A1c 7.0 in October -HbA1c is 6.7 on this hospital stay -Typically managed on metformin at home -hold metformin for now -Lantus and NovoLog per protocol while hospitalized (3) Hypertension: -on amlodipine, irbesartan, and atenolol (4) HLD (hyperlipidemia): -Continue home dosing of atorvastatin 10 mg every 2 days (5) Acid reflux: -Continue PPI (6) Anxiety and depression: -Continue fluoxetine (7) DVT prophylaxis: -Teds/SCDs Disposition: management of MARLYN drain as per orthopedics. If orthopedics can deem that the MARLYN drain can be discontinued and patient can be discharged, then medicine service will sign off. If patient remains in the hospital, then medicine service will continue to follow the patient Subjective Patient seen and examined while sitting up in bedside with walker next to her. Patient brething on room air. no shortness of breath. no chest pain. no abdomen pain. no fevers. no vomiting. Continues to have MARLYN drain to the back however patient was in the past anticipating orthopedic discharge today on Sunday. Physical Exam Constitutional: WD/WN, vitals as above cooperative Eyes: PERRL, conjunctivae normal, anicteric sclerae EOM intact bilaterally ENMT: external ear and nose normal, oropharynx normal Neck: normal visual inspection Respiratory: normal respiratory effort, lungs clear to auscultation Cardiovascular: Rate/Rhythm: regular rate and regular rhythm Gastrointestinal (Abdomen): normal bowel sounds, soft, nontender, no hepatosplenomegaly Musculoskeletal: Head/Neck/Chest: normocephalic and head atraumatic MARLYN drain to the back Neurologic: PERRL, EOMI, accommodation nl, no face palsy, no dysarthria CN's II-XI intact bilaterally Psychiatric: A+Ox3, euthymic affect Results & Data Vital Signs (Past 12 Hours) Vital Signs Temp Pulse Pulse Resp BP Pulse Ox 05/19/19 07:07 36.7 C 72 16 108/64 94 05/18/19 23:36 36.7 C 79 16 124/77 92 05/18/19 21:15 88 18 114/75 96
[2019-05-19] MEDS: FLUOXETINE HCL 20 MG CAP PO SCH (08:25)
[2019-05-19] MEDS: PANTOprazole 40 MG TAB PO SCH (08:25)
[2019-05-19] MEDS: IRBESARTAN 150 MG TAB PO SCH (08:25)
[2019-05-19] MEDS: CHOLECALCIFEROL 1,000 UNITS TAB PO SCH (08:25)
[2019-05-19] MEDS: AMLODIPINE BESYLATE 5 MG TAB PO SCH (08:25)
[2019-05-19] MEDS: ATENOLOL 25 MG TABLET PO SCH (08:25)
[2019-05-19] MEDS: INSULIN GLARGINE SOLOSTAR 100 UNITS/ML 3 ML PEN SC SCH (08:26)
[2019-05-19] MEDS: INSULIN ASPART 100 UNITS/ML 3 ML PEN SC SCH (08:27)
[2019-05-19] MEDS: OXYCODONE HCL IR 5 MG TAB (IMMEDIATE RELEASE) PO PRN (08:34)
--- NOTE | 2019-05-19 09:52 | Discharge Summary ---
Date of Service May 19, 2019 Admission HPI Per Admitting Provider Female well-known to me that presents with chronic persistent back and leg pain. After failing extensive course of nonoperative care she is here for surgical intervention. Principal Diagnosis Lumbar spinal stenosis with neurogenic claudication Discharge Data Allergies Allergy/AdvReac Type Severity Reaction Status Date / Time No Known Allergies Allergy Verified 05/16/19 06:16 Consultations 05/16/19 10:02 Consult Case Management - Discharge Planning Routine Consult Hospitalist Routine Procedures Performed Operation Date: 05/16/19 07:45 Actual Procedures p L2-L5 Decompression, Fusion, and Instrumentation, Interbody Fusion at L4-L5; Spinal Cord Monitoring, Use of Bone Morphogenic Protein(Not Applicable) - Shayne Kruger DO Ordered Studies 05/16/19 07:45 FL fluoroscopy <1hr Routine FL lumbar spine 2-3V Routine Hospital Course (1) Spinal stenosis, lumbar region with neurogenic claudication: Patient underwent lumbar decompression fusion tolerated as well as taken to orthopedic for postoperative. Postop day and when she was up and ambulating. She progressed throughout the weekend. MARLYN drain decreased appropriately. Subsequently discharged home. Strength prior to discharge strength is intact she is comfortable. Discharge orders instructions can be found the chart for further review. Total Time Total Time Spent Total Time Spent (In Minutes): 20 minutes Discharge Plan Discharge Items Patient Disposition: Home - Self-Care Reason For Visit: LUMBAR SPINAL STENOSIS W/OUT NEUROGENIC CLAUDICATI Discharge Diagnosis: Lumbar spinal stenosis with neurogenic claudication Activity: Per Instructions section Non-emergency contact: Primary Care Provider Call non-emergency contact if: you have any medication questions Follow-up/Referrals: PCP,NO [Primary Care Provider] - Diet: Regular Addtl Attending Provider Instructions: ACTIVITY RECOMMENDATIONS: SELF CARE INSTRUCTIONS AFTER THORACIC/LUMBAR FUSIONS 1. You may walk to your tolerance. It is good exercise for your legs and back. Expect some back and intermittent leg aches and pains. 2. You may perform "counter-top" level activities (make a sandwich, nona with a project, etc.). 3. No bending or lifting of more than 10 pounds or back twisting of any nature (roll like a log when turning in bed). 4. You may ride in a car for 20-30 minutes at a time. No driving until after your first visit with your doctor. 5. Frequent changes of position and restricting sitting to 30 minutes at a time will help limit the amount of back spasms and stiffness you may experience. 6. You may discontinue the use of ambulatory aids (cane, crutches, etc.) once your strength and confidence allow. 7. You may welding tester the shower and let water strike your incision when you arrive home at least once daily. Do not take a tub bath, sit in a hot tub or go into a swimming pool until after your first recheck in the office. SPECIAL CARE INSTRUCTIONS: VERY IMPORTANT TO READ AND REVIEW A. Your surgical incision has been closed with a cosmetic suture under the skin that will dissolve in about 6 weeks. In 14 days, you can use a pair of clean scissors and cut the suture that is left outside of the skin at the ends of your incision. 1. The small skin tapes can be removed 7 days after surgery if they have not fallen off by that point. 2. You may keep the wound open to air as much as possible to promote healing after post-op day number 5 unless told otherwise by your doctor. 3. If you think the wound looks like it is becoming infected (redness or worsening drainage) and/or you are experiencing fever, chill or worsening back pain and muscle spasms, contact the office so that we may evaluate you as soon as possible. B. Complications are uncommon, but please contact us if you have any signs or symptoms of: 1. wound infection (fever higher than 102.5 degrees F, redness, separation of wound, drainage, or increasing pain from the incision) 2. blood clots in legs (pain, swelling, redness and warmth in legs) 3. urinary tract infection (fever higher than 102.5 degrees F, burning upon urination or increased frequency of urination) 4. nerve problems (inability to walk on your toes or heels, numbness, loss of bowel or bladder control) 5. any other symptoms that concern you C. Please call the office at if you have any concerns or questions about your operation or recovery. D. No smoking! Smoking drastically decreases the chance of a solid fusion. E. Do not take any anti-inflammatory medications (Indocin, Advil, Motrin, Aspirin, Naprosyn, etc.) as these may inhibit the chance of a solid fusion. Tylenol is okay to take for pain. MANAGING PAIN AFTER SPINAL SURGERY 1. Narcotic medication is intended for short-term use and will be provided for surgical pain. Surgical pain usually lasts for a period of 4-6 weeks. Narcotic medication includes Percocet, Vicodin, Darvocet, Tylenol #3 or Lortab. 2. Longer-term pain is more appropriately treated with non-narcotic medication such as Tylenol ES. 3. Muscle spasm is not appropriately treated with narcotics. Muscle relaxers such as Soma, Flexeril or Skelaxin can be used along with Tylenol ES. 4. Remember that we all live with some "aches and pains". This is not unusual or uncommon after an injury or as we get older. a. Back pain is expected and may include muscle spasms for 4 to 6 weeks after surgery. The pain should gradually improve. If the pain worsens for no apparent reason, please contact the office. b. Intermittent leg pain may also be experienced and should not be concerned about unless it worsens for no apparent reason. If so, please contact the office. 5. We will provide appropriate medication within the normal guidelines of their prescribed use. We will also be very cautious and aware of potential abuse and extended duration of patients' medication needs. a. Pain medications are for your comfort and to assist with sleep and rest so that the tissue can heal. They are not provided in order to return to normal activity and should not be used through the day. To do so or worsening pain at night can result from ongoing tissue damage and development of tolerance to the prescribed medicine. 6. Please allow 2-3 days to process refills. Prescriptions will not be mailed but must be picked up at the office. FOLLOW UP VISIT: Keep your scheduled follow-up appointment. Any questions, please call the office at . Pending Studies at Discharge: No Stand-Alone Forms: [email or web address] Medications and DC Order Prescriptions: New tramadol 50 mg Tablet 50 mg PO Q4H PRN (Reason: Pain, Moderate) Qty: 30 RF: 0 oxycodone 5 mg Tablet 5 mg PO Q4H PRN (Reason: Pain, Severe) Qty: 30 RF: 0 Continued fluoxetine 40 mg Capsule 40 mg PO QAM RF: 0 atorvastatin 10 mg Tablet 10 mg PO Q2D RF: 0 atenolol 25 mg Tablet 25 mg PO BID RF: 0 amlodipine 5 mg Tablet 5 mg PO QAM RF: 0 metformin 1,000 mg Tablet 1,000 mg PO BID RF: 0 omeprazole 20 mg Capsule,Delayed Release(Dr/Ec) 20 mg PO QAM RF: 0 irbesartan 300 mg Tablet 300 mg PO QAM RF: 0 cholecalciferol (vitamin D3) [Vitamin D3] 2,000 unit Capsule 2,000 unit PO BID RF: 0 Discharge Orders: Discharge Order (Routine); Ordered 05/19/19 Ordered By: Quincy Kruger Admission Data Admit Date/Time: 05/16/19 10:02 Attending Provider: Quincy Kruger Admit Provider: Quincy Kruger Primary Care Provider: PCP,NO Other Providers: Jonathan Pierce
== END 2019-05-19 12:09 | disposition home or self-care (01) | DRG 454 ==
LOC: ASU 05:59 → 3E 10:02
DX: D62 Acute posthemorrhagic anemia; E66.9 Obesity, unspecified; I10 Essential (primary) hypertension; Z79.84 Long term (current) use of oral hypoglycemic drugs; E78.5 Hyperlipidemia, unspecified; E11.9 Type 2 diabetes mellitus without complications; Z79.899 Other long term (current) drug therapy; D72.829 Elevated white blood cell count, unspecified; M48.062 Spinal stenosis, lumbar region with neurogenic claudication; F41.9 Anxiety disorder, unspecified; Z68.32 Body mass index [BMI] 32.0-32.9, adult; K21.9 Gastro-esophageal reflux disease without esophagitis; F17.210 Nicotine dependence, cigarettes, uncomplicated